=== PATIENT | male | born 1965 | race Caucasian/White ===

== ENCOUNTER → 2017-01-31 | Outpatient (CLI) | payer OTHER ==
--- NOTE | 2017-01-31 12:20 | ECHOF ---
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 This was a technically good study. The left ventricular size is normal. There is borderline concentric left ventricular hypertrophy. Overall left ventricular systolic function is normal with, an EF between 55 - 60 %. The right ventricle is mildly enlarged. Normal LA size by volume 22+/-6 ml/m2. The right atrium is normal in size. The aortic valve is trileaflet and appears structurally normal. The mitral valve is normal. Mild tricuspid regurgitation present. Right ventricular systolic pressure is normal at < 35 mmHg. There is no pulmonic regurgitation present. The aortic root size is normal. Normal inferior vena cava with normal inspiratory collapse consistent with estimated right atrial pressure of 5 mmHg. There is no pericardial effusion. CONCLUSIONS -------- 1. Sinus rhythm. 2. Right ventricular systolic pressure is normal at < 35 mmHg. 3. There is no pulmonic regurgitation present. 4. The aortic root size is normal. 5. Normal inferior vena cava with normal inspiratory collapse consistent with estimated right atrial pressure of 5 mmHg. 6. There is no pericardial effusion. 7. This was a technically good study. 8. There is borderline concentric left ventricular hypertrophy. 9. Overall left ventricular systolic function is normal with, an EF between 55 - 60 %. 10. The right ventricle is mildly enlarged. 11. Normal LA size by volume 22+/-6 ml/m2. 12. The aortic valve is trileaflet and appears structurally normal. 13. The mitral valve is normal. 14. Mild tricuspid regurgitation present. [employer]AR[employer] HELPER: Alex Figueroa RDCS
== END ==
LOC: RADECHMAIN 11:18
PROVIDERS: ATTEND Internal Medicine
DX: I51.7 Cardiomegaly (principal); I07.1 Rheumatic tricuspid insufficiency; M34.9 Systemic sclerosis, unspecified
CPT/HCPCS: 93306; 94060; 94726; 94729